=== PATIENT | male | born 1940 | race Caucasian/White ===

== ENCOUNTER → 2016-06-17 | Outpatient (CLI) | payer MEDICARE | LOC: YCFC.O 09:14 | PROVIDERS: ATTEND Nurse Practitioner Family | DX: R53.83 Other fatigue (principal); E03.9 Hypothyroidism, unspecified; D51.3 Other dietary vitamin B12 deficiency anemia ==

== ENCOUNTER 2016-07-02 14:16 | Emergency (ER) | payer MEDICARE ==
[2016-07-02] MEDS ORDERED: ASPIRIN TABLET 325 MG TAB PO ONE (14:48)
[2016-07-02] MEDS ORDERED: NITROGLYCERIN 0.4 MG 25 EA TAB SL ONE (14:48)
[2016-07-02] MEDS ORDERED: SODIUM CHLORIDE 0.9% (FLUSH) 10 ML SYG IV PRN (14:48)
[2016-07-02] MEDS: ONDANSETRON INJ 4 MG/2 ML VIAL IV ONE ×2 (14:57→15:10)
--- NOTE | 2016-07-02 15:09 | RAD ---
EXAM DESCRIPTION: XR CHEST 1 VIEW CLINICAL HISTORY: chest pain COMPARISON: May 21, 2016 IMPRESSION: Single AP portable upright view of the chest shows enlargement of the cardiac silhouette without pulmonary vascular congestion. Postsurgical changes from CABG are seen. Lungs are normally aerated without acute appearing infiltrate or consolidation. There appears to be mild linear calcification over the left hemidiaphragm stable from previous. Electronically signed by: Claus Fontana MD 07/02/2016 15:07
--- NOTE | 2016-07-02 15:54 | ED.PDOC ---
History of Present Illness - General Chief Complaint: Chest Pain/ID Stated Complaint: chest discomfort,shortness of breath Time Seen by Provider: 07/02/16 14:48 Source: patient, RN notes reviewed, Vital Signs reviewed Exam Limitations: no limitations - History of Present Illness Initial Comments: Patient is a 75 y/o male who has been feeling increasingly weak and dizzy over the past several days. He recently saw his latexer to try and get clearance for a rotator cuff repair, and must have a stress test prior to clearance. He was not feeling this way when he saw his latexer. He has a mild sharp pain in his left chest occasionally. He has been slightly short of breath. He has a history of a CABG. Timing/Duration: other - several days (4-7) Severity: moderate Improving Factors: nothing Worsening Factors: movement Associated Symptoms: chest pain, shortness of breath, weakness Allergies/Adverse Reactions: Allergies Penicillins Allergy (Verified 10/23/13 07:14) Tetanus Toxoid Allergy (Verified 10/23/13 07:14) Home Medications: Ambulatory Orders Aspirin [Baby Aspirin] 81 mg PO QD 07/02/16 Atorvastatin Calcium [Lipitor] 40 mg PO DAILY 07/02/16 Famotidine 20 mg PO BID PRN 07/02/16 Furosemide 10 mg PO QAM #30 tab 07/02/16 Glyburide 5 mg PO DAILY 07/02/16 Ibuprofen 800 mg PO TID PRN 07/02/16 Metformin HCl [Metformin HCl ER] 500 mg PO DAILY 07/02/16 Metoprolol Tartrate 25 mg PO DAILY 07/02/16 Mometasone Furoate (Nasal) [Nasonex] 50 mcg NA PRN 07/02/16 Naproxen Sodium 550 mg PO BID PRN 07/02/16 Review of Systems - Review of Systems Constitutional: States: weakness EENTM: States: nose congestion Respiratory: States: short of breath Cardiology: States: chest pain Gastrointestinal/Abdominal: States: no symptoms reported Genitourinary: States: no symptoms reported Musculoskeletal: States: no symptoms reported Skin: States: no symptoms reported Neurological: States: weakness, other - dizziness Endocrine: States: no symptoms reported Hematologic/Lymphatic: States: no symptoms reported Past Medical History (General) - Patient Medical History Hx Seizures: No Hx Stroke: No Hx Dementia: No Hx Asthma: No Hx of COPD: Yes Hx Cardiac Disorders: Yes Hx Congestive Heart Failure: No Hx Pacemaker: No Hx Hypertension: Yes Hx Thyroid Disease: Yes Hx Diabetes: Yes Hx Gastroesophageal Reflux: Yes Hx Renal Disease: No Hx Cancer: No Hx of HIV: No Hx Hepatitis C: No Hx MRSA: No Surgical History: appendectomy, coronary bypass surgery, tonsillectomy - Vaccination History Hx Tetanus, Diphtheria Vaccination: No - Allergic Hx Influenza Vaccination: Yes Hx Pneumococcal Vaccination: Yes - Social History Hx Tobacco Use: Yes Hx Alcohol Use: No Hx Substance Use: No Hx Substance Use Treatment: No Hx Depression: No Hx Physical Abuse: No Hx Emotional Abuse: No - Female History Patient : No Family Medical History - Family History Mother Family History: No Known Physical Exam - Physical Exam General Appearance: Alert, Comfortable, No apparent distress Eye Exam: bilateral normal Ears, Nose, Throat: hearing grossly normal, normal ENT inspection Neck: non-tender Respiratory: chest non-tender, lungs clear, normal breath sounds, no respiratory distress, no accessory muscle use Cardiovascular/Chest: normal peripheral pulses, regular rate, rhythm, no edema, no gallop, no murmur Peripheral Pulses: radial,right: 2+, radial,left: 2+, popliteal,right: 2+, popliteal,left: 2+ Gastrointestinal/Abdominal: normal bowel sounds, non tender, soft, no organomegaly, no pulsatile mass Extremity: non-tender, normal inspection Neurologic: alert, normal mood/affect, oriented x 3 Skin Exam: normal color, warm/dry Progress - Results/Orders Results/Orders: 07/02/16 07/02/16 07/02/16 14:28 15:12 15:17 Temperature 95.2 F L Pulse Rate [ 57 L 57 L 56 L Left Brachial] Respiratory 16 20 Rate Blood Pressure 148/74 155/111 [Left Arm] O2 Sat by Pulse 98 97 Oximetry 07/02/16 07/02/16 17:39 20:00 Temperature Pulse Rate [ 58 L 60 Left Brachial] Respiratory 20 18 Rate Blood Pressure 145/78 139/75 [Left Arm] O2 Sat by Pulse 96 96 Oximetry 07/02/16 14:48 Telemetry .ONCE Sodium Chloride 0.9% (Flush) [Saline Flush Syringe] 10 ml IV PRN PRN EKG Stat Pulse Ox Stat 07/02/16 14:49 Pulse Oximetry Assessment DAILY Laboratory Results WBC 9.1 K/mm3 (4.8-10.8) 07/02/16 15:10 RBC 4.74 M/mm3 (4.70-6.10) 07/02/16 15:10 Hgb 14.6 gm/dL (14.0-18.0) 07/02/16 15:10 Hct 42.9 % (42.0-52.0) 07/02/16 15:10 MCV 90.5 fl (80.0-94.0) 07/02/16 15:10 MCH 30.7 pg (27.0-31.0) 07/02/16 15:10 MCHC 33.9 g/dL (33.0-37.0) 07/02/16 15:10 RDW 14.0 % (11.5-14.5) 07/02/16 15:10 Plt Count 104 K/mm3 (130-400) L 07/02/16 15:10 MPV 9.4 fl (7.40-10.4) 07/02/16 15:10 Absolute Neuts (auto) 5.30 K/uL (1.8-6.8) 07/02/16 15:10 Absolute Lymphs (auto) 1.80 K/uL (1.0-3.4) 07/02/16 15:10 Absolute Monos (auto) 0.90 K/uL (0.2-0.8) H 07/02/16 15:10 Absolute Eos (auto) 1.00 K/uL (0.0-0.4) H 07/02/16 15:10 Absolute Basos (auto) 0.10 K/uL (0.0-0.1) 07/02/16 15:10 Neutrophils % 57.9 % (42.0-78.0) 07/02/16 15:10 Lymphocytes % 19.7 % (20.0-50.0) L 07/02/16 15:10 Monocytes % 10.1 % (2.0-9.0) H 07/02/16 15:10 Eosinophils % 10.8 % (1.0-5.0) H 07/02/16 15:10 Basophils % 1.5 % (0.0-2.0) 07/02/16 15:10 PT 13.8 SECONDS (9.4-12.5) H 07/02/16 15:10 INR 1.220 07/02/16 15:10 PTT (SP) 34.0 SECONDS (25.1-36.5) 07/02/16 15:10 Sodium 137 mmol/L (135-145) 07/02/16 15:10 Potassium 4.0 mmol/L (3.6-5.0) 07/02/16 15:10 Chloride 105 mmol/L (101-111) 07/02/16 15:10 Carbon Dioxide 26 mmol/L (21-31) 07/02/16 15:10 Anion Gap 10.0 (12-18) L 07/02/16 15:10 BUN 13 mg/dL (7-18) 07/02/16 15:10 Creatinine 1.01 mg/dL (0.6-1.3) 07/02/16 15:10 BUN/Creatinine Ratio 12.9 (10-20) 07/02/16 15:10 Random Glucose 107 mg/dL (70-105) H 07/02/16 15:10 Serum Osmolality 274.4 mOsm/L (275-295) L 07/02/16 15:10 Calcium 9.2 mg/dL (8.4-10.2) 07/02/16 15:10 Magnesium 1.6 mg/dL (1.8-2.5) L 07/02/16 15:10 Total Bilirubin 1.5 mg/dL (0.2-1.0) H 07/02/16 15:10 Direct Bilirubin 0.3 mg/dL (0-0.2) H 07/02/16 15:10 Indirect Bilirubin 1.2 mg/dL (0.2-0.8) H 07/02/16 15:10 AST 35 IU/L (10-42) 07/02/16 15:10 ALT 17 IU/L (10-60) 07/02/16 15:10 Alkaline Phosphatase 107 IU/L (42-121) 07/02/16 15:10 Creatine Kinase 76 IU/L (38-174) 07/02/16 19:41 CK-MB (CK-2) 1.9 ng/mL (0.0-4.4) 07/02/16 19:41 CK-MB (CK-2) % Not Reportable 07/02/16 19:41 Troponin I < 0.02 ng/mL (0.01-0.05) 07/02/16 19:41 B-Natriuretic Peptide 218.0 pg/ml (0-100) H* 07/02/16 15:10 Serum Total Protein 7.3 gm/dL (6.4-8.2) 07/02/16 15:10 Albumin 3.3 g/dl (3.2-5.5) 07/02/16 15:10 TSH 2.73 uIU/mL (0.34-5.60) 07/02/16 15:10 Urine Color Yellow (Yellow) 07/02/16 16:15 Urine Appearance Clear (Clear) 07/02/16 16:15 Urine pH 6.5 (4.5-7.8) 07/02/16 16:15 Ur Specific [place] 1.015 (1.005-1.030) 07/02/16 16:15 Urine Protein 30 mg/dL 07/02/16 16:15 Urine Glucose (UA) Negative mg/dL (Negative) 07/02/16 16:15 Urine Ketones Negative mg/dL (NEGATIVE) 07/02/16 16:15 Urine Blood Negative (Negative) 07/02/16 16:15 Urine Nitrite Negative 07/02/16 16:15 Urine Bilirubin Negative (NEGATIVE) 07/02/16 16:15 Urine Urobilinogen 1.0 mg/dL (0.2-1.0) 07/02/16 16:15 Ur Leukocyte Esterase Negative (Negative) 07/02/16 16:15 Urine RBC 0-1 /hpf 07/02/16 16:15 Urine WBC 1-3 /hpf 07/02/16 16:15 Ur Epithelial Cells 0 /hpf 07/02/16 16:15 Urine Bacteria 0 07/02/16 16:15 - EKG/XRAY/CT EKG: Yesica - 52, Sinus, no ST T wave changes Comments: NML axis/NML intervals/Comp 05/21/16: reduced rate: Sinus yesica XRAY: chest Xray Comments: Cardiomegaly with no pulm vasc congestion Departure - Departure Clinical Impression: Bradycardia, Hypomagnesemia CHF (congestive heart failure) Qualifiers: Congestive heart failure type: unspecified congestive heart failure type Congestive heart failure chronicity: acute Qualifier Code: (I50.9) Heart failure , unspecified Time of Disposition: 21:38 Disposition: Discharge to Home or Self Care Condition: Good Departure Forms: ED Discharge - Pt. Copy, Patient Portal Self Enrollment Instructions: DI for Heart Failure, Heart Failure, Bradycardia, DI for Bradycardia Diet: low salt diet Referrals: Trixie García NP [Primary Care Provider] - 1-2 Weeks Prescriptions: Furosemide 10 mg PO QAM #30 tab Home Medications: Ambulatory Orders Aspirin [Baby Aspirin] 81 mg PO QD 07/02/16 Atorvastatin Calcium [Lipitor] 40 mg PO DAILY 07/02/16 Famotidine 20 mg PO BID PRN 07/02/16 Furosemide 10 mg PO QAM #30 tab 07/02/16 Glyburide 5 mg PO DAILY 07/02/16 Ibuprofen 800 mg PO TID PRN 07/02/16 Metformin HCl [Metformin HCl ER] 500 mg PO DAILY 07/02/16 Metoprolol Tartrate 25 mg PO DAILY 07/02/16 Mometasone Furoate (Nasal) [Nasonex] 50 mcg NA PRN 07/02/16 Naproxen Sodium 550 mg PO BID PRN 07/02/16 Additional Instructions: Call you latexer in the AM and let him know the changes that have been made in your medications. Decrease Metoprolol to 25 mg (1/2 tablet) daily. Take over the counter magnesium daily.
[2016-07-02] MEDS ORDERED: MAGNESIUM SULFATE PREMIX 2GM 2 GM in PREMIX BAG 1 BAG IVPB ONE (16:19)
[2016-07-02] MEDS ORDERED: MAGNESIUM SULFATE PREMIX 2GM 50 ML IVPB ONE (16:55)
[2016-07-02 17:39] VITALS: O2SAT 96
[2016-07-02] MEDS ORDERED: FUROSEMIDE INJ 20 MG/2 ML VIAL IV ONE (19:17)
[2016-07-02] MEDS ORDERED: FUROSEMIDE INJ 20 MG/2 ML VIAL ONE ×2 (21:11→21:21)
[2016-07-02 21:54] VITALS: BP 140/90; TEMP 97.5
== END 2016-07-02 21:52 | disposition home or self-care (01) ==
LOC: ER 14:16
DX: R00.1 Bradycardia, unspecified (principal); E83.42 Hypomagnesemia; I11.0 Hypertensive heart disease with heart failure; I50.9 Heart failure, unspecified; J44.9 Chronic obstructive pulmonary disease, unspecified; E11.9 Type 2 diabetes mellitus without complications; K21.9 Gastro-esophageal reflux disease without esophagitis; E07.9 Disorder of thyroid, unspecified; Z79.899 Other long term (current) drug therapy; Z79.82 Long term (current) use of aspirin; Z88.0 Allergy status to penicillin; Z88.7 Allergy status to serum and vaccine; Z95.1 Presence of aortocoronary bypass graft; Z87.891 Personal history of nicotine dependence
CPT/HCPCS: 36415; 71010; 80048; 80076; 81001; 82550; 82553; 83880; 84443; 84484; 85025; 85610; 85730; 93005; J1940; J3475

== ENCOUNTER → 2016-09-29 | Outpatient (CLI) | payer MEDICARE, MEDICAID ==
--- NOTE | 2016-09-29 12:03 | RAD ---
EXAM DESCRIPTION: Chest,2 Views CLINICAL HISTORY: 75 years, Male, PRE-OP COMPARISON: July 02 FINDINGS: Slightly shallow inspiration. Stable scarring the bases. Sternotomy. Borderline heart size. IMPRESSION: Stable chronic lung change with borderline heart size Electronically signed by: Monty Lilly MD 09/29/2016 12:02 PM CDT
== END | disposition home or self-care (01) ==
LOC: RESP 09-28 08:50
PROVIDERS: ATTEND Nurse Practitioner Family
DX: Z01.818 Encounter for other preprocedural examination (principal); M75.41 Impingement syndrome of right shoulder

== ENCOUNTER → 2016-09-30 | Outpatient (CLI) | payer MEDICARE, MEDICAID | END | disposition home or self-care (01) | LOC: YCFC.O 11:56 | PROVIDERS: ATTEND Nurse Practitioner Family | DX: D72.1 Eosinophilia (principal); E11.9 Type 2 diabetes mellitus without complications; D69.1 Qualitative platelet defects ==

== ENCOUNTER 2016-10-16 13:34 | Emergency (ER) | payer MEDICARE, MEDICAID ==
[2016-10-16] MEDS ORDERED: LIDOCAINE VIS-MYLANTA 30 ML UD PO ONE (14:07)
[2016-10-16 14:11] VITALS: O2SAT 96
[2016-10-16] MEDS ORDERED: ONDANSETRON ODT 8 MG TAB SL SCH (14:30)
--- NOTE | 2016-10-16 14:32 | RAD ---
EXAM DESCRIPTION: Abdomen Series CLINICAL HISTORY: vomiting after eating, epigastric pain COMPARISON: January 08, 2016 FINDINGS: AP supine and upright views of the abdomen show a nonspecific, nonobstructive bowel gas pattern with no evidence for free intraperitoneal air. No air-filled dilated loops of small bowel are seen. No significant air-fluid levels are identified. No obvious organomegaly is seen. No abnormal calcifications are seen in the expected location of the renal collecting systems. Single view of the chest shows mild enlargement of the cardiac silhouette without pulmonary vascular congestion. Postsurgical changes from CABG are seen.. Lungs are normally aerated and clear. Calcifications of the left hemidiaphragm seen consistent with pleural based calcified plaque and possible previous asbestos exposure. IMPRESSION: Nonspecific abdominal series Electronically signed by: Claus Fontana MD 10/16/2016 2:31 PM CDT
[2016-10-16] MEDS ORDERED: MAGNESIUM HYDROXIDE 30 ML UD PO ONE (15:40)
--- NOTE | 2016-10-16 15:46 | ED.PDOC ---
History of Present Illness - General Chief Complaint: Abdominal Pain Stated Complaint: Abdominal discomfort Time Seen by Provider: 10/16/16 14:06 Source: patient - History of Present Illness Initial Comments: the patient is a 76-year-old male presenting to the emergency room secondary to epigastric discomfort that has intermittently been associated with vomiting after eating. He has had a history of heartburn and just started taking ranitidine about one week ago. No syncope or near-syncope. No chest pain. No blood in the vomitus. No severe constipation. No peritoneal signs. No pain with walking. The patient is currently undergoing a workup for anemia and he says he is scheduled for an endoscopy in about 10 days. Timing/Duration: 1 week Severity: moderate Improving Factors: nothing Worsening Factors: eating Associated Symptoms: loss of appetite, malaise, nausea/vomiting Allergies/Adverse Reactions: Allergies Penicillins Allergy (Verified 10/16/16 14:08) Tetanus Toxoid Allergy (Verified 10/16/16 14:08) Home Medications: Ambulatory Orders Aspirin [Baby Aspirin] 81 mg PO QD 07/02/16 Atorvastatin Calcium [Lipitor] 40 mg PO DAILY 07/02/16 Furosemide 10 mg PO QAM #30 tab 07/02/16 Glyburide 5 mg PO DAILY 07/02/16 Metoprolol Tartrate 25 mg PO DAILY 07/02/16 Mometasone Furoate (Nasal) [Nasonex] 50 mcg NA PRN 07/02/16 Cyanocobalamin [Vitamin B-12] 100 mcg PO DAILY 10/16/16 Esomeprazole Magnesium [Nexium] 40 mg PO BID #60 gra 10/16/16 Levothyroxine Sodium PO DAILY 10/16/16 Ondansetron [Zofran Odt] 4 mg PO Q4H PRN #10 tab 10/16/16 Ranitidine HCl 150 mg PO BID 10/16/16 Sucralfate Tab [Carafate Tab] 1 gm PO QID #60 tab 10/16/16 traZODone HCL PO BEDTIME 10/16/16 Review of Systems - Review of Systems Constitutional: States: malaise EENTM: States: no symptoms reported Respiratory: States: no symptoms reported Cardiology: States: no symptoms reported Gastrointestinal/Abdominal: States: abdominal pain, constipation - mild, vomiting Genitourinary: States: no symptoms reported Musculoskeletal: States: no symptoms reported Skin: States: no symptoms reported Neurological: States: no symptoms reported, see HPI - the patient apparently does have some chronic dementia changes All other Systems: No Change from Baseline Past Medical History (General) - Patient Medical History Hx Seizures: No Hx Stroke: No Hx Dementia: No Hx Asthma: No Hx of COPD: Yes Hx Cardiac Disorders: Yes - high cholesterol Hx Congestive Heart Failure: No Hx Pacemaker: No Hx Hypertension: Yes Hx Thyroid Disease: Yes Hx Diabetes: Yes Hx Gastroesophageal Reflux: Yes Hx Renal Disease: No Hx Cancer: No Hx of HIV: No Hx Hepatitis C: No Hx MRSA: No Surgical History: appendectomy, coronary bypass surgery, tonsillectomy - Vaccination History Hx Tetanus, Diphtheria Vaccination: No - Allergic Hx Influenza Vaccination: Yes - 2015 Hx Pneumococcal Vaccination: No - Social History Hx Tobacco Use: Yes - Quit 1993 Hx Alcohol Use: No Hx Substance Use: No Hx Substance Use Treatment: No Hx Depression: No Hx Physical Abuse: No Hx Emotional Abuse: No - Female History Patient : No Family Medical History - Family History Mother Family History: Unknown Living Status: Physical Exam - Physical Exam General Appearance: Alert, No apparent distress Eye Exam: bilateral normal Ears, Nose, Throat: hearing grossly normal, normal ENT inspection, normal pharynx Neck: non-tender, full range of motion Respiratory: chest non-tender, lungs clear, normal breath sounds, no respiratory distress - (, no accessory muscle use Cardiovascular/Chest: normal peripheral pulses, regular rate, rhythm, no edema Peripheral Pulses: radial,right: 2+, radial,left: 2+, dorsalis pedis,right: 2+, dorsalis pedis,left: 2+ Gastrointestinal/Abdominal: non tender, other - mild epigastric discomfort palpation. No definite rebound or peritoneal signs. Rectal Exam: deferred Back Exam: normal inspection, no CVA tenderness, no vertebral tenderness Extremity: normal range of motion, non-tender, normal inspection, no pedal edema , normal capillary refill Neurologic: water carter II-XII nml as tested, alert, normal mood/affect, oriented x 3 Skin Exam: normal color Comments: Vital Signs - 24 hr 10/16/16 14:09 Temperature 98.4 F Pulse Rate [ 72 Left Radial] Respiratory 18 Rate Blood Pressure 131/75 [Left Arm] O2 Sat by Pulse 96 Oximetry Progress - Progress Progress: 10/16/16 15:46 the patient is a 76-year-old male that appears to have significant gastritis and mild constipation. He was given a dose of milk of magnesia here tonight for the constipation. The patient responded very well to a dose of a GI cocktail and Zofran. The patient will be written for Carafate 4 times daily for the next 2 weeks and Nexium twice daily for the next month. He can continue the ranitidine for now. He needs to keep his follow-up with his primary care doctor and manager it security for completion of the workup for his anemia. He does have mild thrombocytopenia which does need to be followed. He needs to keep well-hydrated. He will be written for some Zofran for as needed use for any nausea. He does appear well hydrated at this time. ER warnings are given for any acute worsening. - Results/Orders Results/Orders: Laboratory Tests 10/16/16 10/16/16 10/16/16 14:20 14:20 14:20 WBC 8.8 RBC 3.92 L Hgb 12.2 L Hct 36.3 L MCV 92.5 MCH 31.1 H MCHC 33.6 RDW 13.9 Plt Count 112 L MPV 8.7 Absolute Neuts (auto) 4.80 Absolute Lymphs (auto) 2.00 Absolute Monos (auto) 1.00 H Absolute Eos (auto) 0.80 H Absolute Basos (auto) 0.20 H Neutrophils % 54.0 Lymphocytes % 23.2 Monocytes % 11.6 H Eosinophils % 9.3 H Basophils % 1.9 PT 13.6 H INR 1.210 PTT (SP) 33.2 Sodium 138 Potassium 4.0 Chloride 110 Carbon Dioxide 23 Anion Gap 9.0 L BUN 19 H Creatinine 1.09 BUN/Creatinine Ratio 17.4 Random Glucose 162 H Serum Osmolality 281.5 Calcium 8.7 Total Bilirubin 1.0 AST 26 ALT 14 Alkaline Phosphatase 95 Creatine Kinase 60 CK-MB (CK-2) 1.1 CK-MB (CK-2) % Not Reportable Troponin I < 0.02 B-Natriuretic Peptide 32.9 Serum Total Protein 6.5 Albumin 2.9 L Globulin 3.6 H Albumin/Globulin Ratio 0.8 L Amylase 42 Lipase 41 Urine Color Urine Appearance Urine pH Ur Specific [place] Urine Protein Urine Glucose (UA) Urine Ketones Urine Blood Urine Nitrite Urine Bilirubin Urine Urobilinogen Ur Leukocyte Esterase Urine RBC Urine WBC Ur Epithelial Cells Urine Bacteria 10/16/16 15:08 WBC RBC Hgb Hct MCV MCH MCHC RDW Plt Count MPV Absolute Neuts (auto) Absolute Lymphs (auto) Absolute Monos (auto) Absolute Eos (auto) Absolute Basos (auto) Neutrophils % Lymphocytes % Monocytes % Eosinophils % Basophils % PT INR PTT (SP) Sodium Potassium Chloride Carbon Dioxide Anion Gap BUN Creatinine BUN/Creatinine Ratio Random Glucose Serum Osmolality Calcium Total Bilirubin AST ALT Alkaline Phosphatase Creatine Kinase CK-MB (CK-2) CK-MB (CK-2) % Troponin I B-Natriuretic Peptide Serum Total Protein Albumin Globulin Albumin/Globulin Ratio Amylase Lipase Urine Color Dk yellow Urine Appearance Clear Urine pH 5.5 Ur Specific [place] 1.020 Urine Protein 30 Urine Glucose (UA) Negative Urine Ketones Trace Urine Blood Negative Urine Nitrite Negative Urine Bilirubin Small H Urine Urobilinogen 2.0 H Ur Leukocyte Esterase Negative Urine RBC 0 Urine WBC 0 Ur Epithelial Cells 3-5 Urine Bacteria 0 abdominal series shows mild constipation. Departure - Departure Clinical Impression: Gastritis Constipation Qualifiers: Constipation type: unspecified constipation type Qualified Code(s): K59.00 - Constipation, unspecified Disposition: Discharge to Home or Self Care Condition: Fair Departure Forms: ED Discharge - Pt. Copy, Patient Portal Self Enrollment Instructions: DI for Gastritis, DI for Constipation Diet: regular diet - High-fiber low-fat diet. Avoid spicy and large meals. Activity: increase activity as tolerated Referrals: Trixie García NP [Primary Care Provider] - 1-2 Weeks Prescriptions: Esomeprazole Magnesium [Nexium] 40 mg PO BID #60 gra Ondansetron [Zofran Odt] 4 mg PO Q4H PRN #10 tab PRN Reason: Vomiting Sucralfate Tab [Carafate Tab] 1 gm PO QID #60 tab Home Medications: Ambulatory Orders Aspirin [Baby Aspirin] 81 mg PO QD 07/02/16 Atorvastatin Calcium [Lipitor] 40 mg PO DAILY 07/02/16 Furosemide 10 mg PO QAM #30 tab 07/02/16 Glyburide 5 mg PO DAILY 07/02/16 Metoprolol Tartrate 25 mg PO DAILY 07/02/16 Mometasone Furoate (Nasal) [Nasonex] 50 mcg NA PRN 07/02/16 Cyanocobalamin [Vitamin B-12] 100 mcg PO DAILY 10/16/16 Esomeprazole Magnesium [Nexium] 40 mg PO BID #60 gra 10/16/16 Levothyroxine Sodium PO DAILY 10/16/16 Ondansetron [Zofran Odt] 4 mg PO Q4H PRN #10 tab 10/16/16 Ranitidine HCl 150 mg PO BID 10/16/16 Sucralfate Tab [Carafate Tab] 1 gm PO QID #60 tab 10/16/16 traZODone HCL PO BEDTIME 10/16/16 Additional Instructions: the patient is a 76-year-old male that appears to have significant gastritis and mild constipation. He was given a dose of milk of VSE EVAKUATORY ROSSII for the constipation. The patient responded very well to a dose of a GI cocktail and Zofran. The patient will be written for Carafate 4 times daily for the next 2 weeks and Nexium twice daily for the next month. He can continue the ranitidine for now. He needs to keep his follow-up with his primary care doctor and manager it security for completion of the workup for his anemia. He does have mild thrombocytopenia which does need to be followed. He needs to keep well-hydrated. He will be written for some Zofran for as needed use for any nausea. He does appear well hydrated at this time. ER warnings are given for any acute worsening. he should also continue to avoid anti- inflammatories such as Advil or Aleve naproxen or ibuprofen.
[2016-10-16 16:04] VITALS: BP 149/77; TEMP 97.7
== END 2016-10-16 16:03 | disposition home or self-care (01) ==
LOC: ER 13:34
DX: K29.70 Gastritis, unspecified, without bleeding (principal); K59.00 Constipation, unspecified; Z87.891 Personal history of nicotine dependence; Z95.1 Presence of aortocoronary bypass graft; J44.9 Chronic obstructive pulmonary disease, unspecified; E78.00 Pure hypercholesterolemia, unspecified; I10 Essential (primary) hypertension; E07.9 Disorder of thyroid, unspecified; E11.9 Type 2 diabetes mellitus without complications; K21.9 Gastro-esophageal reflux disease without esophagitis; Z79.899 Other long term (current) drug therapy; Z79.82 Long term (current) use of aspirin; Z88.0 Allergy status to penicillin; Z88.7 Allergy status to serum and vaccine

== ENCOUNTER → 2016-10-27 | Outpatient (CLI) | payer MEDICARE | END | disposition home or self-care (01) | LOC: LAB.O 14:38 | PROVIDERS: ATTEND Internal Medicine Hematology & Oncology | DX: D72.821 Monocytosis (symptomatic) (principal); D53.9 Nutritional anemia, unspecified; D69.6 Thrombocytopenia, unspecified ==

== ENCOUNTER → 2016-12-10 | Outpatient (CLI) | payer MEDICARE, MEDICAID | LOC: RESP 09:59 | PROVIDERS: ATTEND Nurse Practitioner Family | DX: J44.9 Chronic obstructive pulmonary disease, unspecified (principal) ==

== ENCOUNTER → 2016-12-16 | Outpatient (CLI) | payer MEDICARE, MEDICAID | LOC: RESP 13:45 | PROVIDERS: ATTEND Nurse Practitioner Family | DX: J44.9 Chronic obstructive pulmonary disease, unspecified (principal) ==

== ENCOUNTER → 2017-02-24 | Outpatient (CLI) | payer MEDICAID, MEDICARE | END | disposition home or self-care (01) | LOC: GT 07:21 → LAB.O 07:21 → EDSTATUS 10:17 | PROVIDERS: ATTEND Internal Medicine | DX: E87.6 Hypokalemia (principal); E11.9 Type 2 diabetes mellitus without complications; D50.9 Iron deficiency anemia, unspecified; I10 Essential (primary) hypertension ==

== ENCOUNTER → 2017-03-03 | Outpatient (CLI) | payer MEDICARE, MEDICAID | END | disposition home or self-care (01) | LOC: GT 18:52 | PROVIDERS: ATTEND General Practice | DX: N39.0 Urinary tract infection, site not specified (principal) ==

== ENCOUNTER → 2017-03-19 | Outpatient (CLI) | payer MEDICARE | END | disposition home or self-care (01) | LOC: BFHOS 16:13 | PROVIDERS: ATTEND Family Medicine | DX: R30.0 Dysuria (principal) ==

== ENCOUNTER → 2017-04-21 | Outpatient (CLI) | payer MEDICARE | END | disposition home or self-care (01) | LOC: BFHOS 12:07 | PROVIDERS: ATTEND General Practice | DX: R18.8 Other ascites (principal); R79.89 Other specified abnormal findings of blood chemistry; D64.9 Anemia, unspecified ==

== ENCOUNTER 2017-04-29 21:26 | Emergency (ER) | payer MEDICARE ==
[2017-04-29] MEDS ORDERED: SODIUM CHLORIDE 0.9% 1000ML 1,000 ML IVS ONE (21:27)
[2017-04-29] MEDS ORDERED: MIDAZOLAM INJ 5 MG/5 ML VIAL ONE ×3 (21:31→22:32)
[2017-04-29] MEDS ORDERED: MORPHINE SULFATE INJ 10 MG/ML VIAL ONE (21:41)
[2017-04-29] MEDS ORDERED: SUCCINYLCHOLINE CHLORIDE 200 MG/10 ML VIAL ONE (21:47)
[2017-04-29] MEDS ORDERED: DEXTROSE 5% 250ML 0 ML ONE (21:54)
[2017-04-29] MEDS ORDERED: NOREPINEPHRINE BITARTRATE 4 MG/4 ML VIAL IVPB ONE (21:54)
[2017-04-29] MEDS ORDERED: DOPamine PREMIX 250 ML IVPB ONE (21:55)
[2017-04-29] MEDS: MAGNESIUM SULFATE PREMIX 2GM 2 GM in PREMIX BAG 1 BAG IVPB ONE (22:20)
[2017-04-29] MEDS: methylPREDNISolone SODIUM SUC 125 MG/2 ML VIAL IV ONE (22:20)
[2017-04-29] MEDS ORDERED: MAGNESIUM SULFATE PREMIX 2GM 50 ML IVPB ONE (22:22)
--- NOTE | 2017-04-29 22:27 | ED.PDOC ---
History of Present Illness - General Time Seen by Provider: 04/29/17 21:35 Source: EMS notes reviewed, family Exam Limitations: clinical condition - History of Present Illness Initial Comments: the patient is a 76-year-old male brought in by EMS in a full code. The patient had been called out for an unresponsive male. When september arrived they found the patient down and unresponsive. He was in asystole. CPR was started and the patient was intubated. The patient received 3 rounds of epinephrine and he also received a dose of D50 as he was hypoglycemic. HE ARRIVED HERE HE WAS IN ATRIAL FIBRILLATION WITH A MILDLY RAPID VENTRICULAR RATE. FAMILY DOES NOT KNOW OF ANY HISTORY OF ANY ATRIAL FIBRILLATION. 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 THEY DENY THAT HE TAKES ANY SIGNIFICANT BLOOD THINNING MEDICATIONS. HE DOES HAVE ESOPHAGEAL CANCER AND IS ON HOSPICE BUT IS NOT A DNR. CHEMOTHERAPY WAS DISCONTINUED SECONDARY TO RENAL FAILURE SEVERAL MONTHS AGO. 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 HE APPARENTLY HAS NOT DRANK IN A LONG TIME. THE PATIENT WAS COMPLETELY UNRESPONSIVE WITH EMS AND UPON ARRIVAL HERE WELL. AFTER APPROXIMATELY 15-20 MINUTES THE PATIENT STARTEDBUCKING THE VENT. AT THAT TIME HE DID REQUIRE SOME SEDATION. UPON ARRIVAL PUPILS WERE DILATED AND SYMMETRICAL HOWEVER THE PATIENT HAD RECEIVED EPINEPHRINE. TEMPERATURE WAS 95 3. NO ADDITIONAL COOLING IS WARRANTED AT THIS TIME. THE PATIENT HAS RECEIVED AN ADDITIONAL DOSE OF D50 SECONDARY TO BLOOD SUGARS REMAINING IN THE 50S. HE HAS ADDITIONALLY RECEIVED A DOSE SOLU-MEDROL PRIMARILY FOR STRESS DOSING. SOURCE OF THE PATIENT'S CARDIORESPIRATORY COLLAPSE IS STILL UNKNOWN AT THIS TIME. HE WAS APPARENTLY FEELING OKAY ASIDE FROM HIS NORMAL ABDOMINAL PAINS 30 MINUTES BEFORE EMS ARRIVED. NO WITNESSES SAW THE PATIENT GO DOWN. Timing/Duration: unsure, 1/2 hour Severity: severe Improving Factors: medication Worsening Factors: nothing Allergies/Adverse Reactions: Allergies Penicillins Allergy (Verified 10/16/16 14:08) Tetanus Toxoid Allergy (Verified 10/16/16 14:08) Home Medications: Ambulatory Orders Aspirin [Baby Aspirin] 81 mg PO QD 07/02/16 Atorvastatin Calcium [Lipitor] 40 mg PO DAILY 07/02/16 Furosemide 10 mg PO QAM #30 tab 07/02/16 Glyburide 5 mg PO DAILY 07/02/16 Metoprolol Tartrate 25 mg PO DAILY 07/02/16 Mometasone Furoate (Nasal) [Nasonex] 50 mcg NA PRN 07/02/16 Cyanocobalamin [Vitamin B-12] 100 mcg PO DAILY 10/16/16 Esomeprazole Magnesium [Nexium] 40 mg PO BID #60 gra 10/16/16 Levothyroxine Sodium PO DAILY 10/16/16 Ondansetron [Zofran Odt] 4 mg PO Q4H PRN #10 tab 10/16/16 Ranitidine HCl 150 mg PO BID 10/16/16 Sucralfate Tab [Carafate Tab] 1 gm PO QID #60 tab 10/16/16 traZODone HCL PO BEDTIME 10/16/16 Review of Systems - Review of Systems Review of Systems: 04/29/17 22:27 Limited review of systems is obtained from family. The patient is of course unable to give any additional information. Constitutional: States: malaise EENTM: States: no symptoms reported Respiratory: States: no symptoms reported Cardiology: States: no symptoms reported Gastrointestinal/Abdominal: States: abdominal pain - hronic Genitourinary: States: no symptoms reported Musculoskeletal: States: back pain - chronic Skin: States: no symptoms reported Neurological: States: no symptoms reported All other Systems: No Change from Baseline Past Medical History (General) - Patient Medical History Hx Seizures: No Hx Stroke: No Hx Dementia: No Hx Asthma: No Hx of COPD: Yes Hx Cardiac Disorders: Yes - high cholesterol Hx Congestive Heart Failure: No Hx Pacemaker: No Hx Hypertension: Yes Hx Thyroid Disease: Yes Hx Diabetes: Yes Hx Gastroesophageal Reflux: Yes Hx Renal Disease: No Hx Cancer: No Hx of HIV: No Hx Hepatitis C: No Hx MRSA: No - Vaccination History Hx Tetanus, Diphtheria Vaccination: No - Allergic Hx Influenza Vaccination: Yes - 2015 Hx Pneumococcal Vaccination: No - Social History Hx Tobacco Use: Yes - Quit 1993 Hx Alcohol Use: No Hx Substance Use: No Hx Substance Use Treatment: No Hx Depression: No Hx Physical Abuse: No Hx Emotional Abuse: No - Female History Patient : No Family Medical History - Family History Mother Family History: Unknown Living Status: Physical Exam - Physical Exam General Appearance: Other - the patient is completely unresponsive initially and intubated. This is without any sedative medications on board aside from his fentanyl patches which had just been removed. Eye Exam: bilateral other - pupils are initially symmetrical and dilated after the epinephrine Ears, Nose, Throat: other - ET tube in place initially at 28 cm at the outside of the fixator. ET tube was pulled back 4 cm based on the initial chest x-ray. Neck: full range of motion, normal inspection Respiratory: other - the patient is overbreathing the ventilator once he starts coming back around. Good air movement. Cardiovascular/Chest: normal peripheral pulses, other - he has +1 edema at the site of the I&O on the right lower extremity Peripheral Pulses: radial,right: 2+, radial,left: 2+, femoral,right: 2+, femoral ,left: 2+, dorsalis pedis,right: 1+, dorsalis pedis,left: 1+ Gastrointestinal/Abdominal: soft Rectal Exam: deferred Back Exam: normal inspection Extremity: normal range of motion - passive, other - +1 edema of the right lower extremity. Extremities are cool. Neurologic: other - The patient was initially completely unresponsive. He has since started bucking the ventilator. No other purposeful movement. Skin Exam: pallor Progress - Progress Progress: 04/29/17 22:32 the patient is a 76-year-old male presenting to the emergency room in a full code. The patient was found to be in asystole by EMS. CPR was started and the patient was given 3 Amps of epinephrine prior to arrival. The patient was intubated prior to arrival. The ET tube was backed off to 24 cm at the external fixator. Good air movement and end-tidal indicate adequate ventilation. ABG shows a pH of 7.29 at PA CO2 of 31 and PaO2 of 584. FiO2 has since been decreased of course. CBC is still pending at this time. He does have some acute renal failure when compared to previous labs from this site. He has received a liter of IV fluids and will be receiving more. He does have significant lactic acidosis as would be expected with the code. The atrial fibrillation is apparently new. He does have a mildly elevated troponin as one would expect with CPR. D-dimer is also correspondingly elevated. He does have a markedly abnormality of his coagulation panel which I'm uncertain if this is new or old. The patient is receiving IV sedation here with morphine and Versed currently. He is requiring a small amount of dopamine for mild hypotension. Source of the patient's collapse is uncertain at this time. he is already mildly hypothermic with a temperature of approximately 95. Given his coagulation abnormalities further hypothermia is not likely recommended. He is receiving a small dose of IV magnesium. He does have mild hyperkalemia and is receiving IV fluids for this currently. He will likely later need a dose of Lasix and possibly Kayexalate. Consideration towards head CT at the [facility] may be given. Obviously repeat EKG and cardiac enzymes are certainly warranted. Results of the CBC will be forwarded as well. Transferred by air. Critical care time spent on this patient in not otherwise billable procedures 50 minutes. - Results/Orders Results/Orders: Laboratory Tests 04/29/17 04/29/17 04/29/17 21:30 21:30 21:56 PT 35.0 H* INR 3.130 PTT (SP) 85.0 H* D-Dimer, Quantitative 3158 H* Sodium 144 Potassium 5.9 H Chloride 112 H Carbon Dioxide 20 L Anion Gap 17.9 BUN 36 H Creatinine 2.46 H BUN/Creatinine Ratio 14.6 POC Glucose 56 L Random Glucose 109 H Serum Osmolality 295.8 H Lactic Acid Calcium 7.5 L Magnesium 1.5 L Total Bilirubin 1.6 H AST 57 H ALT 19 Alkaline Phosphatase 88 Creatine Kinase 135 CK-MB (CK-2) 9.2 H* CK-MB (CK-2) % 6.81 H Troponin I 1.60 H* Serum Total Protein 4.9 L Albumin 1.4 L* Globulin 3.5 Albumin/Globulin Ratio 0.4 L 04/29/17 22:00 PT INR PTT (SP) D-Dimer, Quantitative Sodium Potassium Chloride Carbon Dioxide Anion Gap BUN Creatinine BUN/Creatinine Ratio POC Glucose Random Glucose Serum Osmolality Lactic Acid 7.8 H* Calcium Magnesium Total Bilirubin AST ALT Alkaline Phosphatase Creatine Kinase CK-MB (CK-2) CK-MB (CK-2) % Troponin I Serum Total Protein Albumin Globulin Albumin/Globulin Ratio CBC is still pending at this time. EKG shows atrial fibrillation with rapid ventricular rate. There is T-wave inversions and aVL. There is likely a left anterior fascicular block. Difficult to interpret otherwise. No definitive ST segment changes to indicatean ST elevation myocardial infarction. Initial chest x-ray showed the ET tube and to the right mainstem bronchus. Repeat shows it above the damion. There is some mild residual infiltrate in the left lung likely from the right mainstem bronchus intubation initially. Lung [place] are aerated. Departure - Departure Clinical Impression: Cardiac arrest Disposition: Transfer to Hospital Referrals: Osorio White MD [Primary Care Provider] - 1-2 Weeks Home Medications: Ambulatory Orders Aspirin [Baby Aspirin] 81 mg PO QD 07/02/16 Atorvastatin Calcium [Lipitor] 40 mg PO DAILY 07/02/16 Furosemide 10 mg PO QAM #30 tab 07/02/16 Glyburide 5 mg PO DAILY 07/02/16 Metoprolol Tartrate 25 mg PO DAILY 07/02/16 Mometasone Furoate (Nasal) [Nasonex] 50 mcg NA PRN 07/02/16 Cyanocobalamin [Vitamin B-12] 100 mcg PO DAILY 10/16/16 Esomeprazole Magnesium [Nexium] 40 mg PO BID #60 gra 10/16/16 Levothyroxine Sodium PO DAILY 10/16/16 Ondansetron [Zofran Odt] 4 mg PO Q4H PRN #10 tab 10/16/16 Ranitidine HCl 150 mg PO BID 10/16/16 Sucralfate Tab [Carafate Tab] 1 gm PO QID #60 tab 10/16/16 traZODone HCL PO BEDTIME 10/16/16 Transfer to Outside Facility - Transfer Information Accepting Provider:: dr bernal Accepting Facility: [facility] Reason for Transfer: ICU
[2017-04-29 22:38] VITALS: TEMP 95.2
[2017-04-29] MEDS: CALCIUM CHLORIDE INJ 100 MG/ML SYG IV ONE (22:40)
[2017-04-29] MEDS ORDERED: DEXTROSE 50% 25 GM/50 ML SYG IV ONE (23:55)
[2017-04-29] MEDS ORDERED: EPINEPHrine INJ 0.1 MG/ML 10 ML SYG ONE (23:55)
[2017-04-29] MEDS ORDERED: SODIUM CHLORIDE 0.9% (FLUSH) 10 ML SYG ONE (23:55)
--- NOTE | 2017-04-29 23:57 | RAD ---
Examination: XR CHEST 1 VIEW dated 04/29/2017 9:36 PM [facility] [employer] History: s/p code Comparison: 09/29/2016 Technique: Frontal view of the chest Findings: tip of ET tube projects 2.5 cm above the damion. Asymmetric opacification of the left lung. Prominent interstitial markings bilaterally. No pneumothorax. Sequela of prior CABG. Aortic atherosclerosis. Cardiac silhouette is within normal limits. Impression: Tip of ET tube projects 2.5 cm above the damion. Findings of pulmonary edema with asymmetric opacification of the left lung. This may be related to diffuse alveolar disease, infection, or asymmetric pulmonary edema. Electronically signed by: Lance Thompson MD 04/29/2017 11:56 PM [facility]
[2017-04-30 00:09] VITALS: BP 99/60; O2SAT 100
== END 2017-04-29 23:40 | disposition short-term general hospital (02) ==
LOC: ER 21:26
DX: Z86.74 Personal history of sudden cardiac arrest (principal); C15.9 Malignant neoplasm of esophagus, unspecified; I48.91 Unspecified atrial fibrillation; I25.10 Atherosclerotic heart disease of native coronary artery without angina pectoris; Z95.1 Presence of aortocoronary bypass graft; Z79.82 Long term (current) use of aspirin; Z79.899 Other long term (current) drug therapy; Z88.0 Allergy status to penicillin; Z88.7 Allergy status to serum and vaccine; J44.9 Chronic obstructive pulmonary disease, unspecified; I10 Essential (primary) hypertension; E11.9 Type 2 diabetes mellitus without complications; E07.9 Disorder of thyroid, unspecified; Z87.891 Personal history of nicotine dependence